=== PATIENT | female | born 1970 | race Caucasian/White ===

== ENCOUNTER 2017-02-13 12:31 | Inpatient (IN) | payer OTHER ==
[2017-02-13 12:46] VITALS: BMI 21.1
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
[2017-02-13] MEDS ORDERED: METHADONE HCL 10 MG TABLET (FOR DETOX USE ONLY) PO ONE ×2 (15:14→23:00)
[2017-02-13] MEDS ORDERED: P-EPHED 60MG/TRIPROLIDI 2.5MG TABLET PO PRN (15:14)
[2017-02-13] MEDS ORDERED: NICOTINE POLACRILEX 2 MG GUM BC PRN (15:14)
[2017-02-13] MEDS ORDERED: guaiFENesin/D-METHORPHAN HB 10 ML UNIT-DOSE CUPS PO PRN (15:14)
[2017-02-13] MEDS ORDERED: LOPERAMIDE HCL 2 MG CAPSULE PO PRN (15:14)
[2017-02-13] MEDS ORDERED: MAGNESIUM CITRATE 300 ML BOTTLE PO PRN (15:14)
[2017-02-13] MEDS ORDERED: MAG HYDROX/AL HYDROX/SIMETH 30 ML UNIT-DOSE CUP PO PRN (15:14)
[2017-02-13] MEDS ORDERED: ACETAMINOPHEN 325 MG TABLET (FP) PO PRN (15:14)
[2017-02-13] MEDS ORDERED: MAGNESIUM HYDROX 2400MG/30ML ORAL SUSPENSION 30 ML CUP PO PRN (15:14)
[2017-02-13] MEDS ORDERED: MENTHOL/PHENOL 1 EACH UD MM PRN (15:14)
[2017-02-13] MEDS: diazePAM 5 MG TABLET PO PRN ×2 (15:56→22:28)
[2017-02-13] MEDS: IBUPROFEN 400 MG TABLET (FP) PO PRN (15:58)
[2017-02-13] MEDS: NICOTINE 21 MG/24 HOURS TOPICAL PATCH TD SCH (15:58)
[2017-02-13] MEDS: LISINOPRIL 10 MG TABLET (FP) PO SCH (18:54)
[2017-02-13 19:19] LABS: URINE APPEARANCE CLEAR; URINE BILIRUBIN NEGATIVE (NEGATIVE); URINE BLOOD 1+ (NEGATIVE); URINE COLOR STRAW; URINE GLUCOSE (UA) NEGATIVE (NEGATIVE); URINE KETONE NEGATIVE (NEGATIVE); URINE LEUK ESTERASE NEGATIVE (NEGATIVE); URINE NITRITE NEGATIVE (NEGATIVE); URINE PROTEIN NEGATIVE (NEGATIVE); URINE UROBILINOGEN NEGATIVE mg/dL (0.2-1.0)
[2017-02-13] MEDS: THIAMINE HCL 100 MG TABLET (FP) PO SCH (22:28)
[2017-02-13] MEDS: diphenhydrAMINE HCL 50 MG CAPSULE PO PRN (22:29)
[2017-02-14 09:50] LABS: MCH 31.4 pg (25.7-33.7); MCHC 33.2 g/dl (32.0-36.0); MEAN CELL VOLUME 94.5 fl (80-96); MEAN PLT VOLUME 9.6 fl (7.5-11.1); PLATELET COUNT 226 K/MM3 (134-434); RDW 13.8 % (11.6-15.6); WHITE BLOOD COUNT 8.7 K/mm3 (4.0-10.0)
[2017-02-14 09:57] LABS: ALBUMIN 3.2 g/dl (3.4-5.0); ANION GAP 6 (8-16); CALCIUM 8.5 mg/dL (8.5-10.1); CO2 26 mmol/L (21-32); GLUCOSE,RANDOM 83 mg/dL (74-106)
[2017-02-14] MEDS ORDERED: METHADONE HCL 10 MG TABLET (FOR DETOX USE ONLY) PO ONE (10:00)
[2017-02-14 10:02] LABS: ALK PHOS 62 U/L (45-117); BILIRUBIN,TOTAL 0.2 mg/dL (0.2-1.0); CREATININE 0.3 mg/dL (0.55-1.02); SGOT/AST 34 U/L (15-37); SGPT/ALT 51 U/L (12-78); TOT PROT 5.9 g/dl (6.4-8.2)
[2017-02-14 10:22] LABS: SICKLE CELL SCREEN NEGATIVE (NEGATIVE)
[2017-02-14] MEDS: LISINOPRIL 10 MG TABLET (FP) PO SCH (10:31)
[2017-02-14] MEDS: PRENATAL VITAMINS W/ FOLIC ACID TABLET (FP) PO SCH (10:31)
[2017-02-14] MEDS: NICOTINE 21 MG/24 HOURS TOPICAL PATCH TD SCH (10:32)
[2017-02-14] MEDS: diazePAM 5 MG TABLET PO PRN ×3 (10:34→22:24)
[2017-02-14] MEDS: IBUPROFEN 400 MG TABLET (FP) PO PRN ×2 (10:34→17:41)
--- NOTE | 2017-02-14 11:01 | PN ---
BHS COWS - Scale Resting Pulse: 0= [place] 80 or Below Sweatin=Flushed/Facial Moisture Restless Observation: 0= Sits Still Pupil Size: 0= Normal to Room Light Bone or Joint Aches: 2= Severe Diffuse Aches Runny Nose/ Eye Tearin= Runny Nose/Eyes GI Upset > 30mins: 1= Stomach Cramp Tremor Observation of Outstretched Hands: 1= Tremor [place], Not Seen Yawning Observation: 2= >3x During Session Anxiety or Irritability: 2=Irritable/Anxious Goose Flesh Skin: 3=Piloerection COWS Score: 15 BHS Progress Note (SOAP) Subjective: shakes sweats interrupted sleep anxiety Objective: 02/14/17 11:00 Vital Signs Temperature 97.9 F 02/14/17 10:23 Pulse Rate 70 02/14/17 10:23 Respiratory Rate 18 02/14/17 10:23 Blood Pressure 109/67 02/14/17 10:23 O2 Sat by Pulse Oximetry (%) Laboratory Last Values WBC 8.7 K/mm3 (4.0-10.0) 02/14/17 07:00 RBC 3.91 M/mm3 (3.60-5.2) 02/14/17 07:00 Hgb 12.2 GM/dL (10.7-15.3) 02/14/17 07:00 Hct 36.9 % (32.4-45.2) 02/14/17 07:00 MCV 94.5 fl (80-96) 02/14/17 07:00 MCH 31.4 pg (25.7-33.7) 02/14/17 07:00 MCHC 33.2 g/dl (32.0-36.0) 02/14/17 07:00 RDW 13.8 % (11.6-15.6) 02/14/17 07:00 Plt Count 226 K/MM3 (134-434) 02/14/17 07:00 MPV 9.6 fl (7.5-11.1) 02/14/17 07:00 Sickle Cell Screen Negative (NEGATIVE) 02/14/17 07:00 Sodium 139 mmol/L (136-145) 02/14/17 07:00 Potassium 3.8 mmol/L (3.5-5.1) 02/14/17 07:00 Chloride 107 mmol/L (98-107) 02/14/17 07:00 Carbon Dioxide 26 mmol/L (21-32) 02/14/17 07:00 Anion Gap 6 (8-16) L 02/14/17 07:00 BUN 11 mg/dL (7-18) 02/14/17 07:00 Creatinine 0.3 mg/dL (0.55-1.02) L 02/14/17 07:00 Creat Clearance w eGFR > 60 (>60) 02/14/17 07:00 Random Glucose 83 mg/dL (74-106) 02/14/17 07:00 Calcium 8.5 mg/dL (8.5-10.1) 02/14/17 07:00 Total Bilirubin 0.2 mg/dL (0.2-1.0) 02/14/17 07:00 AST 34 U/L (15-37) 02/14/17 07:00 ALT 51 U/L (12-78) 02/14/17 07:00 Alkaline Phosphatase 62 U/L (45-117) 02/14/17 07:00 Total Protein 5.9 g/dl (6.4-8.2) L 02/14/17 07:00 Albumin 3.2 g/dl (3.4-5.0) L 02/14/17 07:00 Urine Color Straw 02/13/17 18:00 Urine Appearance Clear 02/13/17 18:00 Urine pH 6.0 (5.0-8.0) 02/13/17 18:00 Ur Specific [place] <= 1.005 (1.005-1.025) 02/13/17 18:00 Urine Protein Negative (NEGATIVE) 02/13/17 18:00 Urine Glucose (UA) Negative (NEGATIVE) 02/13/17 18:00 Urine Ketones Negative (NEGATIVE) 02/13/17 18:00 Urine Blood 1+ (NEGATIVE) H 02/13/17 18:00 Urine Nitrite Negative (NEGATIVE) 02/13/17 18:00 Urine Bilirubin Negative (NEGATIVE) 02/13/17 18:00 Urine Urobilinogen Negative mg/dL (0.2-1.0) 02/13/17 18:00 awake/alert ambulating no acute distress Assessment: 02/14/17 11:01 withdrawal sx Plan: continue detox increase fluids
--- NOTE | 2017-02-14 11:02 | CONSULT ---
[facility] Psychiatric Consult - Data Date of interview: 02/14/17 Admission source: [facility] Identifying data: HIS IS T46 years old sapnish speaking woman with a 4 year history of opioid dependence is admitted for detox. Patient imntoxicated ith. Opioids and Nicotine Substance Abuse History: - Smoking Cessation. Smoking history: Current every day smoker. Have you smoked in the past 12 months: Yes. Aproximately how many cigarettes per day: 20. Hx Chewing Tobacco Use: No. Initiated information on smoking cessation: Yes. 'Breaking Loose' booklet given: 02/13/17. - Substance & Tx. History. Hx Alcohol Use: No. Hx Substance Use: Yes. Substance Use Type : Opiates. Hx Substance Use Treatment: No. - Substances Abused. Oxycontin. Route: Oral. Frequency: Daily. Amount used: 75mg. Age of first use: 42. Date of Last Use: 01/26/17. morphine. Route: Oral. Frequency: Daily. Amount used: 100mg. Age of first use: 44. Date of Last Use: 02/12/17 Medical History: Denies any signidicant medical issues Psychiatric History: Patient reports no medications taking prior to admission, reports [id number] of depression, denies suicidal history Physical/Sexual Abuse/Trauma History: Denies Additional Comment: Obsrevation. Detox Unit Carte Protocol Mental Status Exam - Mental Status Exam Alert and Oriented to: Person Cognitive Function: Fair Patient Appearance: Well Groomed Mood: Apprehensive Affect: Mood Congruent Patient Behavior: Cooperative Speech Pattern: Appropriate Voice Loudness: Normal Thought Process: Goal Oriented Thought Disorder: Being Controlled Hallucinations: Denies Suicidal Ideation: Denies Homicidal Ideation: Denies Insight/Judgement: Fair Sleep: Difficulty falling asleep Appetite: Fair Muscle strength/Tone: Normal Gait/Station: Normal Additional Comments: Obsrevation. Detox Unit Carte Protocol Psychiatric Findings - Problem List ([place] 1, 2,3) (1) Opioid dependence with withdrawal Current Visit: Yes Status: Chronic (2) Nicotine dependence Current Visit: Yes Status: Acute (3) Drug-induced mood disorder Current Visit: Yes Status: Suspected - Initial Treatment Plan Initial Treatment Plan: Obsrevation. Detox Unit Carte Protocol
--- NOTE | 2017-02-14 17:01 | EKG ---
Test Reason : Blood Pressure : / mmHG Vent. Rate : 077 BPM Atrial Rate : 077 BPM P-R Int : 148 ms QRS Dur : 094 ms QT Int : 366 ms P-R-T Axes : 077 073 067 degrees QTc Int : 414 ms NORMAL SINUS RHYTHM NORMAL ECG NO PREVIOUS ECGS AVAILABLE Confirmed by AVILA RUBIO MD ([id number]) on 02/14/2017 5:00:46 PM Referred By: Confirmed By:AVILA RUBIO MD
[2017-02-14] MEDS: THIAMINE HCL 100 MG TABLET (FP) PO SCH (22:24)
[2017-02-14] MEDS: ZOLPIDEM TARTRATE 10 MG TABLET (PARK CARE ONLY) PO PRN (22:24)
[2017-02-15] MEDS: IBUPROFEN 400 MG TABLET (FP) PO PRN ×2 (05:44→13:22)
[2017-02-15] MEDS ORDERED: METHADONE HCL 5 MG TABLET (FOR DETOX USE ONLY) PO ONE (10:00)
--- NOTE | 2017-02-15 10:07 | PN ---
BHS COWS - Scale Resting Pulse: 0= [place] 80 or Below Sweatin= Chills/Flushing Restless Observation: 1= Difficult to Sit Still Pupil Size: 1= Pupils >than Normal Bone or Joint Aches: 1= Mild Discomfort Runny Nose/ Eye Tearin= Nasal Congestion GI Upset > 30mins: 2= Nausea/Diarrhea Tremor Observation of Outstretched Hands: 2= Slight Tremor Visible Yawning Observation: 1= 1-2x During Session Anxiety or Irritability: 2=Irritable/Anxious Goose Flesh Skin: 3=Piloerection COWS Score: 15 BHS Progress Note (SOAP) Subjective: nausea, sweats, interrupted sleep, anxiety, tremors Objective: 02/15/17 10:06 Vital Signs - 24 hr 02/14/17 02/14/17 02/14/17 10:23 13:58 17:58 Temperature 97.9 F 98.1 F 98 F Pulse Rate 70 74 67 Respiratory 18 20 20 Rate Blood Pressure 109/67 117/76 114/69 02/14/17 02/15/17 02/15/17 21:27 00:30 03:30 Temperature 98.8 F Pulse Rate 70 Respiratory 18 18 18 Rate Blood Pressure 126/76 02/15/17 06:00 Temperature 98.4 F Pulse Rate 70 Respiratory 18 Rate Blood Pressure 130/75 Laboratory Tests 02/13/17 02/14/17 02/14/17 18:00 07:00 07:00 WBC 8.7 RBC 3.91 Hgb 12.2 Hct 36.9 MCV 94.5 MCH 31.4 MCHC 33.2 RDW 13.8 Plt Count 226 MPV 9.6 Sickle Cell Screen Negative Sodium 139 Potassium 3.8 Chloride 107 Carbon Dioxide 26 Anion Gap 6 L BUN 11 Creatinine 0.3 L Creat Clearance w eGFR > 60 Random Glucose 83 Calcium 8.5 Total Bilirubin 0.2 AST 34 ALT 51 Alkaline Phosphatase 62 Total Protein 5.9 L Albumin 3.2 L Urine Color Straw Urine Appearance Clear Urine pH 6.0 Ur Specific [place] <= 1.005 Urine Protein Negative Urine Glucose (UA) Negative Urine Ketones Negative Urine Blood 1+ H Urine Nitrite Negative Urine Bilirubin Negative Urine Urobilinogen Negative RPR Titer 02/14/17 07:00 WBC RBC Hgb Hct MCV MCH MCHC RDW Plt Count MPV Sickle Cell Screen Sodium Potassium Chloride Carbon Dioxide Anion Gap BUN Creatinine Creat Clearance w eGFR Random Glucose Calcium Total Bilirubin AST ALT Alkaline Phosphatase Total Protein Albumin Urine Color Urine Appearance Urine pH Ur Specific [place] Urine Protein Urine Glucose (UA) Urine Ketones Urine Blood Urine Nitrite Urine Bilirubin Urine Urobilinogen RPR Titer Nonreactive Assessment: 02/15/17 10:07 withdrawal sx Plan: cont detox
[2017-02-15] MEDS: diazePAM 5 MG TABLET PO PRN ×3 (10:25→22:17)
[2017-02-15] MEDS: LISINOPRIL 10 MG TABLET (FP) PO SCH (10:25)
[2017-02-15] MEDS: PRENATAL VITAMINS W/ FOLIC ACID TABLET (FP) PO SCH (10:25)
[2017-02-15] MEDS: NICOTINE 21 MG/24 HOURS TOPICAL PATCH TD SCH (10:26)
[2017-02-15] MEDS: THIAMINE HCL 100 MG TABLET (FP) PO SCH (22:17)
[2017-02-15] MEDS: ZOLPIDEM TARTRATE 10 MG TABLET (PARK CARE ONLY) PO PRN (22:17)
[2017-02-16] MEDS: diazePAM 5 MG TABLET PO PRN ×2 (05:42→10:18)
[2017-02-16] MEDS: IBUPROFEN 400 MG TABLET (FP) PO PRN ×3 (05:42→22:15)
[2017-02-16] MEDS ORDERED: METHADONE HCL 5 MG TABLET (FOR DETOX USE ONLY) PO ONE (10:00)
--- NOTE | 2017-02-16 10:16 | PN ---
BHS Progress Note (SOAP) Subjective: low back pain sweats anxiety body aches Objective: 02/16/17 10:15 Vital Signs Temperature 98.2 F 02/16/17 06:39 Pulse Rate 80 02/16/17 06:39 Respiratory Rate 18 02/16/17 06:39 Blood Pressure 130/74 02/16/17 06:39 O2 Sat by Pulse Oximetry (%) [id number] ambulating no acute distress Assessment: 02/16/17 10:15 withdrawal sx Plan: continue detox increase fluids
[2017-02-16] MEDS: PRENATAL VITAMINS W/ FOLIC ACID TABLET (FP) PO SCH (10:18)
[2017-02-16] MEDS: NICOTINE 21 MG/24 HOURS TOPICAL PATCH TD SCH (10:19)
[2017-02-16] MEDS: LISINOPRIL 10 MG TABLET (FP) PO SCH (10:20)
[2017-02-16] MEDS: LIDOCAINE 5% TOPICAL PATCH TP SCH (11:23)
[2017-02-16] MEDS: hydrOXYzine PAMOATE 25 MG CAPSULE (FP) PO PRN ×2 (17:20→22:15)
[2017-02-16] MEDS: THIAMINE HCL 100 MG TABLET (FP) PO SCH (22:15)
[2017-02-16] MEDS: LIDOCAINE PATCH REMOVAL MC SCH (22:15)
[2017-02-16] MEDS: ZOLPIDEM TARTRATE 10 MG TABLET (PARK CARE ONLY) PO PRN (22:15)
[2017-02-17] MEDS: IBUPROFEN 400 MG TABLET (FP) PO PRN ×2 (05:52→13:50)
[2017-02-17] MEDS ORDERED: METHADONE HCL 10 MG TABLET (FOR DETOX USE ONLY) PO ONE (10:00)
[2017-02-17] MEDS: NICOTINE 21 MG/24 HOURS TOPICAL PATCH TD SCH (10:31)
[2017-02-17] MEDS: PRENATAL VITAMINS W/ FOLIC ACID TABLET (FP) PO SCH (10:31)
[2017-02-17] MEDS: LISINOPRIL 10 MG TABLET (FP) PO SCH (10:31)
[2017-02-17] MEDS: LIDOCAINE 5% TOPICAL PATCH TP SCH (10:32)
[2017-02-17] MEDS: hydrOXYzine PAMOATE 25 MG CAPSULE (FP) PO PRN ×2 (11:02→17:19)
--- NOTE | 2017-02-17 12:26 | PN ---
BHS Progress Note (SOAP) Subjective: sweats anxiety Objective: 02/17/17 12:24 Vital Signs Temperature 99.1 F 02/17/17 09:52 Pulse Rate 71 02/17/17 09:52 Respiratory Rate 20 02/17/17 09:52 Blood Pressure 133/75 02/17/17 09:52 O2 Sat by Pulse Oximetry (%) aaox3 ambulating no acute distress Assessment: 02/17/17 12:24 withdrawal sx Plan: continue detox visitril prn d/c in am
[2017-02-17] MEDS: THIAMINE HCL 100 MG TABLET (FP) PO SCH (22:20)
[2017-02-17] MEDS: LIDOCAINE PATCH REMOVAL MC SCH (22:52)
[2017-02-17] MEDS ORDERED: ZOLPIDEM TARTRATE 5 MG TABLET PO ONE (22:55)
[2017-02-17] MEDS ORDERED: ZOLPIDEM TARTRATE 10 MG TABLET (PARK CARE ONLY) PO ONE (23:15)
[2017-02-18] MEDS: diphenhydrAMINE HCL 50 MG CAPSULE PO PRN (01:07)
[2017-02-18] MEDS: hydrOXYzine PAMOATE 25 MG CAPSULE (FP) PO PRN (02:54)
[2017-02-18] MEDS ORDERED: METHADONE HCL 5 MG TABLET (FOR DETOX USE ONLY) PO ONE (06:00)
[2017-02-18 07:17] VITALS: BP 148/77; PULSE 98; TEMP 97.7
--- NOTE | 2017-02-18 08:30 | DS ---
[facility] Detox Discharge Summary Admission Date: 02/13/17 Discharge Date: 02/18/17 - History Present History: Opioid Dependence Pertinent Past History: nicotine dependence, anxiety, insomnia, and depression - Physical Exam Results Vital Signs: Vital Signs Temperature 97.7 F 02/18/17 07:16 Pulse Rate 98 H 02/18/17 07:16 Respiratory Rate 20 02/18/17 07:16 Blood Pressure 148/77 02/18/17 07:16 O2 Sat by Pulse Oximetry (%) Laboratory Tests 02/13/17 02/14/17 02/14/17 18:00 07:00 07:00 WBC 8.7 RBC 3.91 Hgb 12.2 Hct 36.9 MCV 94.5 MCH 31.4 MCHC 33.2 RDW 13.8 Plt Count 226 MPV 9.6 Sickle Cell Screen Negative Sodium 139 Potassium 3.8 Chloride 107 Carbon Dioxide 26 Anion Gap 6 L BUN 11 Creatinine 0.3 L Creat Clearance w eGFR > 60 Random Glucose 83 Calcium 8.5 Total Bilirubin 0.2 AST 34 ALT 51 Alkaline Phosphatase 62 Total Protein 5.9 L Albumin 3.2 L Urine Color Straw Urine Appearance Clear Urine pH 6.0 Ur Specific [place] <= 1.005 Urine Protein Negative Urine Glucose (UA) Negative Urine Ketones Negative Urine Blood 1+ H Urine Nitrite Negative Urine Bilirubin Negative Urine Urobilinogen Negative RPR Titer 02/14/17 07:00 WBC RBC Hgb Hct MCV MCH MCHC RDW Plt Count MPV Sickle Cell Screen Sodium Potassium Chloride Carbon Dioxide Anion Gap BUN Creatinine Creat Clearance w eGFR Random Glucose Calcium Total Bilirubin AST ALT Alkaline Phosphatase Total Protein Albumin Urine Color Urine Appearance Urine pH Ur Specific [place] Urine Protein Urine Glucose (UA) Urine Ketones Urine Blood Urine Nitrite Urine Bilirubin Urine Urobilinogen RPR Titer Nonreactive Pertinent Admission Physical Exam Findings: withdrawal sx - Treatment Patient has Accepted a Rehab Referral to: Yes - Medication Discharge Medications: Ambulatory Orders Lisinopril 10 mg PO DAILY 02/13/17 - Diagnosis (1) Nicotine dependence Status: Chronic (2) Opioid dependence with withdrawal Status: Chronic (3) Drug-induced mood disorder Status: Acute (4) HTN (hypertension) Status: Chronic Qualifiers: Hypertension type: essential hypertension Qualified Code(s): I10 - Essential (primary) hypertension - AMA Did Patient Leave Against Medical Advice: No
== END 2017-02-18 06:40 | disposition home or self-care (01) | DRG 773 ==
LOC: YASAS 12:31 → Y6N 15:11
PROVIDERS: ADMIT Internal Medicine; ATTEND Internal Medicine
PROC: HZ2ZZZZ Detoxification Services for Substance Abuse Treatment (ICD-10-PCS; principal; 2017-02-13)
DX: F11.23 Opioid dependence with withdrawal (principal); F17.210 Nicotine dependence, cigarettes, uncomplicated; F19.24 Other psychoactive substance dependence with psychoactive substance-induced mood disorder; F32.9 Major depressive disorder, single episode, unspecified; I10 Essential (primary) hypertension
CPT/HCPCS: 36415; 80053; 81003; 81015; 85027; 85660; 86593; 93005; 93010

== ENCOUNTER 2018-01-10 09:24 | Day surgery (SDC) | payer OTHER ==
[2018-01-09 18:33] VITALS: BMI 22.8
[2018-01-10] MEDS ORDERED: MIDAZOLAM HCL 2 MG/2 ML SINGLE DOSE VIAL ONE ×2 (11:42)
[2018-01-10] MEDS ORDERED: ceFAZolin SODIUM 1 GM VIAL ONE (11:42)
[2018-01-10] MEDS ORDERED: ceFAZolin SODIUM 1 GM VIAL IVPB ONE (11:45)
[2018-01-10] MEDS ORDERED: KETOROLAC TROMETHAMINE 30 MG/1 ML VIAL ONE (11:47)
[2018-01-10] MEDS ORDERED: LIDOCAINE HCL 1% PRESERVATIVE FREE - 30ML VIAL IJ ONE (11:55)
[2018-01-10] MEDS ORDERED: LIDOCAINE HCL 2% (20ML MULTI-DOSE VIAL) NR ONE (11:59)
[2018-01-10] MEDS ORDERED: LIDOCAINE HCL 2% (50ML VIAL) NR ONE ×2 (12:02)
[2018-01-10] MEDS ORDERED: oxyCODONE HCL 5 MG TABLET PO PRN (13:19)
[2018-01-10] MEDS ORDERED: PROMETHAZINE HCL 25 MG/1 ML VIAL IVPUSH PRN (13:19)
[2018-01-10] MEDS ORDERED: ONDANSETRON 4 MG/2 ML VIAL IVPUSH PRN (13:19)
[2018-01-10] MEDS ORDERED: LACTATED RINGERS SOLUTION 1,000 ML IV SCH (13:30)
[2018-01-10] MEDS ORDERED: oxyCODONE HCL 5 MG TABLET ONE ×2 (13:50→15:13)
[2018-01-10 14:01] VITALS: TEMP 97.8
[2018-01-10] MEDS ORDERED: oxyCODONE HCL 5 MG TABLET PO ONE (15:15)
[2018-01-10 18:53] VITALS: BP 131/78; PULSE 89
--- NOTE | 2018-01-16 19:40 | PROC ---
Procedure Note Procedure: Date of service: 01/10/2018 Preoperative Diagnosis: Failed Back Surgery Syndrome, Lumbar Radiculopathy, Lumbar Spinal Stenosis Postoperative Diagnosis: Same Procedure Performed: 1) Insertion of spinal cord stimulator leads x 2 2) Fluoroscopic needle guidance 3) Initial programming of device Anesthesia: Local (2% Lidocaine )/MAC Anesthesiologist: Procedure: I discussed with the patient in detail about the risks, benefits and alternatives to treatment not only limited to infection, headache, numbness, weakness and injury to nerves, spinal cord, blood vessels and muscles. The patient understood, agreed and signed the written consent. The patient was positioned prone on the fluoroscopy table. The patient was prepped and draped in the usual sterile fashion using DuraPrep and a fenestrated drape. Routine vital sign monitors were applied and anesthesia was initiated. The patient remained conversant throughout the procedure. The area to be injected was determined using fluoroscopy. Local anesthetic was given by raising a skin wheal and going down to the hub of a 25-gauge 1.5-inch needle. The 25-gauge 3.5- inch needle was used to anesthetize down to just short of the ligamentum flavum to be entered. A 14-gauge Tuohy needle was then advanced to contact the right L1-L2 level. It was walked off in a superior medial direction until it entered the epidural space using loss of resistance to saline and air. The high - frequency spinal cord stimulator lead was advanced through the Tuohy needle and directed to rest the tip at the T9. The same procedure was repeated in detail for the left side to insert a second lead within the epidural space to reside at T8 level. Lead position was confirmed both in AP and Lateral views under Fluoroscopy. The needles were withdrawn leaving the leads in place and were then secured to the patients skin using Stay-Fix adhesive bandages and Tegaderm. The patients back was cleaned. The patient was allowed to fully recover from anesthesia and taken to the recovery room in good position. The procedure was completed without complications and was tolerated well. The patient was monitored after the procedure. Stimulation programming and testing of the device was done in the recovery room by the device branch sales and service representative. The patient (or responsible republican) was given post-procedure and discharge instructions to follow at home. The patient was discharged in stable condition. Pre-procedure pain score: 10/10. Post-procedure pain score: 5/10. A follow-up appointment was made. If there is any problem, call my office at [phone] or report to Emergency Room. Luis Ceballos M.D.
== END 2018-01-10 16:00 | disposition home or self-care (01) ==
LOC: JASU-SURG 09:24
PROVIDERS: ATTEND Physical Medicine & Rehabilitation
PROC: 4B00XVZ Measurement of Central Nervous Stimulator, External Approach (ICD-10-PCS; 2018-01-10)
PROC: 00HU3MZ Insertion of Neurostimulator Lead into Spinal Canal, Percutaneous Approach (ICD-10-PCS; principal; 2018-01-10 10:30)
DX: M54.16 Radiculopathy, lumbar region (principal); M51.26 Other intervertebral disc displacement, lumbar region
CPT/HCPCS: 63650; 95972; L8680; 76000-TC-FY; 84703; 94760